=== PATIENT | male | born 1995 | race African-American/Black ===

== ENCOUNTER 2021-12-05 21:34 | Emergency (ER) | payer SELFPAY ==
[~2021-12-05] VITALS: Ht 182.9 cm; Wt 83.9 kg
[2021-12-05 22:17] VITALS: BP 120/81
--- NOTE | 2021-12-05 23:22 | NUR ---
Patient discharged to home in stable condition. Written and verbal after care instructions given. Patient verbalizes understanding of instruction. Pt ambulatory with a steady gait
== END 2021-12-05 23:22 | disposition home or self-care (01) ==
LOC: ER 21:39
DX: R10.9 Unspecified abdominal pain (principal); K59.00 Constipation, unspecified; R25.3 Fasciculation; F43.9 Reaction to severe stress, unspecified; F12.90 Cannabis use, unspecified, uncomplicated